=== PATIENT | female | born 1955 | race Caucasian/White ===

== ENCOUNTER 2019-01-19 17:10 | Emergency (ER) | payer MEDICARE, MEDICAID, SELFPAY ==
[2019-01-19 17:15] VITALS: BP 137/90; PULSE 72; RESP 16; TEMP 36.7; O2SAT 96
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
[2019-01-19 17:53] VITALS: BP 139/83; PULSE 73; RESP 18; O2SAT 99
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
--- NOTE | 2019-01-19 18:17 | DI.RAD.S_ITS ---
PROCEDURE: XR FINGER RT MIN 2V INDICATIONS: thumb pain TECHNIQUE: AP hand, 3 views of the first finger(s) acquired. COMPARISON: None. FINDINGS: Bones: There is no gross acute right thumb fracture or dislocation. Osteoarthritic changes throughout right thumb is seen. Finding is more prominent at first CMC joint. No suspicious bony lesions. Soft tissues: Well-corticated fragments are noted adjacent to first metacarpal base, likely representing remote injury. IMPRESSION: Osteoarthritic changes throughout right thumb. No acute fracture or dislocation. Dictated by: Rafy Rivera M.D. on 01/19/2019 at 19:17 Approved by: Rafy Rivera M.D. on 01/19/2019 at 19:21
[2019-01-19] MEDS: TET,DIPH,PERTUSS(ACELL),VAC/PF 0.5 ML SYRINGE IM (18:21)
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
[2019-01-19 18:30] VITALS: BP 137/90; PULSE 72; O2SAT 98
[2019-01-19] MEDS: MORPHINE 2 MG/ML INJ IV (18:42)
[2019-01-19 18:45] VITALS: BP 128/69; PULSE 71; RESP 18; O2SAT 96
--- NOTE | 2019-01-19 20:09 | DI.CT.S_ITS ---
PROCEDURE: CT PEL WO CON INDICATIONS: left hip pain fall TECHNIQUE: Noncontrast 3 mm axial sections acquired through the bony pelvis, with coronal and sagittal reformatting. COMPARISON: [facility], CR, XR HIP W PEL IF DONE LT 2V, 01/19/2019, 17:51. FINDINGS: Image quality: Beam hardening artifacts are noted from bilateral hip prosthesis and surgical hardware. Bones: Patient is status post prior bilateral total hip arthroplasty and internal fixation of left posterior acetabulum. Pelvic ring is intact. There is no definite acute pelvic or hip fracture. No evidence of hardware loosening or failure. No suspicious intraosseous lesion. Soft tissues: There is no pelvic free fluid or free air. Urinary bladder is well-distended and shows no gross bladder wall abnormality. No abnormal bowel wall thickening. Uterus and bilateral adnexa show no gross abnormality. No significant joint effusion is seen. No pelvic or hip muscle or soft tissue abnormality is noted. IMPRESSION: 1. Prior bilateral total hip arthroplasty and internal fixation of posterior left acetabulum. No gross hardware loosening or failure. 2. No gross acute pelvic or hip fracture. No hip dislocation. 3. No pelvic free fluid or free air. No gross muscle or soft tissue abnormality. Dictated by: Rafy Rivera M.D. on 01/19/2019 at 20:56 Approved by: Rafy Rivera M.D. on 01/19/2019 at 21:01
--- NOTE | 2019-01-19 20:10 | PC.NURSE ---
Attempted to ambulate pt. Pt states L hip feels unstable with ambulation. Pt returned to bed, Dr Tapia notified.
[2019-01-19 21:25] VITALS: BP 123/71; PULSE 82; RESP 18; O2SAT 95
[2019-01-19] MEDS: HYDROCODONE/ACET 5/325 PREPACK 1 BOTTLE MISC (21:31)
== END 2019-01-19 21:40 | disposition home or self-care (01) ==
PROVIDERS: Emergency Provider Emergency Medicine; Family Provider Internal Medicine; PCP Internal Medicine
DX: S42.022A Displaced fracture of shaft of left clavicle, initial encounter for closed fracture (principal); R07.89 Other chest pain; M25.512 Pain in left shoulder; S61.011A Laceration without foreign body of right thumb without damage to nail, initial encounter; V19.88XA Pedal cyclist (driver) (passenger) injured in other specified transport accidents, initial encounter
CPT/HCPCS: 71101; 72192; 73030; 73130; 73502; 90471; 96374; 99283; 99284; 90715; J2270

== ENCOUNTER → 2019-03-01 08:48 | Outpatient (CLI) | payer MEDICARE, MEDICAID, SELFPAY ==
[2019-03-01 10:10] LABS: Vitamin D 25 Hydroxy (D3) 34.9 ng/mL (30.0-100.0)
== END ==
PROVIDERS: Family Provider Internal Medicine; PCP Internal Medicine; Visit Provider Orthopaedic Surgery
DX: S42.002A Fracture of unspecified part of left clavicle, initial encounter for closed fracture (principal); Z96.643 Presence of artificial hip joint, bilateral
CPT/HCPCS: 36415; 82306

== ENCOUNTER → 2019-06-13 15:22 | Outpatient (CLI) | payer MEDICARE, SELFPAY ==
[2019-06-13 16:01] LABS: Add Manual Diff / Slide Review NO; Basophils Absolute Auto 0 /uL (0-100); Basophils Percent Auto 0.6 % (0-2); Eosinophils Absolute Auto 100 /uL (0-450); Eosinophils Percent Auto 1.9 % (2-4); Hematocrit 37.3 % (36-46); Hemoglobin 12.4 g/dL (12.0-16.0); Lymphocytes Absolute Auto 1800 /uL (1100-4500); Mean Corpuscular HGB Conc 33.3 % (30-36); Mean Corpuscular Hemoglobin 28.3 PG (26-34); Mean Corpuscular Volume 84.9 fL (80-100); Monocytes Absolute Auto 400 /uL (0-900); Monocytes Percent Auto 7.3 % (3-14); Neutrophils Absolute Auto 3300 /uL (1500-7000); Neutrophils Percent Auto 58.2 % (50-75); Platelet Count 324 X10^3/uL (150-400); Red Cell Distribution Width 16.7 % (11.6-14.8); White Blood Cell Count 5.6 X10^3/uL (4.5-11.0)
[2019-06-13 16:40] LABS: Free T4, Direct Thyroxine 1.12 ng/dL (0.78-2.19)
[2019-06-13 16:43] LABS: Alanine Aminotransferase 23 IU/L (9-52); Albumin 4.5 g/dL (3.5-5.0); Albumin Globulin Ratio 1.6 (1.0-2.8); Alkaline Phosphatase 78 U/L (38-126); Aspartate Aminotransferase 24 IU/L (14-36); Bilirubin Total 0.3 mg/dL (0.2-1.3); Blood Urea Nitrogen 12 mg/dL (7-17); Calcium 10.9 mg/dL (8.4-10.2); Carbon Dioxide 29 mmol/L (22-32); Chloride 101 mmol/L (98-107); Estimated Glomerular Filt Rate > 60.0 mL/min (>60); Globulin 2.8 g/dL (1.7-4.1); Glucose 101 mg/dL (80-110); HEMOLYSIS < 15 (0-50); Potassium 4.1 mmol/L (3.4-5.1); Sodium 139 mmol/L (137-145); Total Protein 7.3 g/dL (6.3-8.2)
== END ==
PROVIDERS: PCP Internal Medicine; Visit Provider Internal Medicine
DX: S09.90XA Unspecified injury of head, initial encounter (principal); R53.83 Other fatigue; V89.2XXA Person injured in unspecified motor-vehicle accident, traffic, initial encounter
CPT/HCPCS: 36415; 80053; 84439; 84443; 85025

== ENCOUNTER → 2019-06-14 14:23 | Outpatient (CLI) | payer MEDICARE, SELFPAY ==
--- NOTE | 2019-06-14 14:25 | DI.CT.S_ITS ---
PROCEDURE: CT HEAD/BRAIN WO CON INDICATIONS: closed head injury TECHNIQUE: Noncontrast 4.5 mm thick angled axial sections acquired from the foramen magnum to the vertex, with coronal and sagittal reformats. For radiation dose reduction, the following was used: automated exposure control, adjustment of mA and/or kV according to patient size. COMPARISON: None. FINDINGS: Image quality: Excellent. CSF spaces: Basal cisterns are patent. No extra-axial fluid collections. There is ex vacuo dilatation seen of the anterior aspect of the left lateral ventricle. Brain: There is a remote infarction seen midline loss involving the left frontal lobe deep white matter and the left basal ganglia. No intracranial bleeds or masses. There is cerebral volume loss for age, with resultant ventricular and sulcal prominence. There are periventricular and deep white matter chronic small vessel ischemic changes. There is intracranial internal carotid artery atherosclerosis. Skull and face: Calvarium and visualized facial bones appear intact, without suspicious lesions. Sinuses: Visualized sinuses and mastoids are clear. 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 No acute intracranial hemorrhage is seen. Dictated by: Niraj Kumar M.D. on 06/14/2019 at 14:01 Approved by: Niraj Kumar M.D. on 06/14/2019 at 14:02
== END ==
PROVIDERS: PCP Internal Medicine; Visit Provider Internal Medicine
DX: I69.314 Frontal lobe and executive function deficit following cerebral infarction (principal)
CPT/HCPCS: 70450

== ENCOUNTER → 2019-07-11 14:55 | Outpatient (CLI) | payer MEDICARE, SELFPAY ==
[2019-07-13 16:03] LABS: Parathyroid Hormone Int 7 pg/mL (14-64)
== END ==
PROVIDERS: PCP Internal Medicine; Visit Provider Internal Medicine
DX: E83.52 Hypercalcemia (principal)
CPT/HCPCS: 36415; 83970

== ENCOUNTER 2019-08-31 08:23 | Day surgery (SDC) | payer MEDICARE, SELFPAY ==
[2019-08-28 13:44] VITALS: BMI 28.1
[2019-08-31 08:45] VITALS: BP 139/85; PULSE 69; RESP 16; TEMP 36.6; O2SAT 98; BMI 28.1
[2019-08-31] MEDS: LACTATED RINGERS 1,000 ML 42 ML IV (09:04)
--- NOTE | 2019-08-31 10:10 | PM.PREOP ---
Pre-operative Note Interval Note History & Physical reviewed/Exam performed by Physician: Yes Changes to H&P: No
[2019-08-31] MEDS: CEFAZOLIN 2 GM/100 ML FROZ.PIGGY IV (10:49)
[2019-08-31] MEDS: BUPIVACAINE 0.5% W/ EPI (PF) VIAL 30 ML INJ (11:33)
[2019-08-31 12:06] VITALS: BP 97/66; PULSE 79; RESP 18; TEMP 36.2; O2SAT 93
--- NOTE | 2019-08-31 12:09 | P.OP_ITS ---
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 No sign of any Stener lesion Closure Type: primary Specimen(s): none sent Applied: implant(s) ( 3 Arthrex swivel locks as well as fiber tape) Estimated Blood Loss (mL): 0 Blood products transfused: none Tourniquet time (min): 48 Procedure in detail: on date of service, patient was met in the holding area where her operative site was signed and witnessed by the OR staff. Surgeries once again discussed with the patient and any remaining questions or concerns that she had were answered fully. Patient received her antibiotics preoperatively. Operative site was signed and witnessed by the OR staff. Patient was taken back to the operating theater placed on the operating table in a supine position. Great care was taken to ensure that all bony prominences were appropriately padded. Well-padded tourniquet was placed up along the right upper extremity. Time-out was repeated verifying patient's name procedure and operative site. Right arm was prepped and draped in the normal sterile fashion. Esmarch was used to exsanguinate the limb the tourniquet was turned up to 250 mm of mercury. Fifteen blade was used to make an incision along the ulnar border of the thumb centered over the MCP joint. Fifteen blade was used to incise through skin only. Pickups and tenotomy scissors used to bluntly dissect through the soft tissue protecting any branches off the superficial radial nerve. This was continued until we had good visualization of the abductor aponeurosis. No sign of any Stener lesion. This was then split and retracted giving us good visualization of the ulnar collateral ligament. Complete rupture off the metacarpal. The joint was inspected. No sign of any loose bodies no sign of any significant arthritic changes. Two drill holes were made in the metacarpal guidewires were placed 1st and positioning was verified with mini C-arm. Once we were satisfied with the position of the guidewire so they were drilled. Two anchors were placed loaded with FiberTape as well as 2 0 FiberWire. FiberWire was used to pass through the ulnar collateral ligament allowing us to tie it down on to the metacarpal. This provided a osuna repair of the ulnar collateral ligament. This was done with the joint reduced correcting the angular deformity. Next, 3rd anchor was placed in the proximal phalanx. Same procedure was used guidewire was placed followed by drilling. Two strands of the fiber tape from the 2 previous proximal anchors were placed into the single distal anchor and were tenodesis across the joint in order to secure the repair of the ulnar collateral ligament as well as augment the repair. The joint was stressed and there was no longer any booking open of the ulnar aspect of the joint. Patient was demonstrating a good repair of her ulnar collateral ligament. Wound was then copiously irrigated and then closed in a layered fashion. Patient was placed into a thumb spica splint and was taken to the PACU in stable condition. Complications: none Post-operative Condition: stable Disposition: PACU Plan for aftercare: patient will be in the splint until she sees the hand therapist. Hand therapist will make her a removable brace. Once patient is in the removable brace there is no restrictions to range of motion of the MCP joint of the thumb. Will limit lifting to 2-3 lb. No stress across the ulnar collateral ligament
[2019-08-31 12:11] VITALS: BP 113/69; PULSE 76; RESP 16; O2SAT 94
[2019-08-31 12:20] VITALS: BP 121/75; PULSE 73; RESP 18; O2SAT 93
[2019-08-31 12:30] VITALS: BP 118/76; PULSE 74; RESP 18; TEMP 36.2; O2SAT 94
== END 2019-08-31 13:00 | disposition home or self-care (01) ==
PROVIDERS: PCP Internal Medicine; Visit Provider Orthopaedic Surgery
PROC: (CPT 26540; principal; 2019-08-31 10:45)
DX: S63.641A Sprain of metacarpophalangeal joint of right thumb, initial encounter (principal); V19.3XXA Pedal cyclist (driver) (passenger) injured in unspecified nontraffic accident, initial encounter; I25.10 Atherosclerotic heart disease of native coronary artery without angina pectoris; Z86.73 Personal history of transient ischemic attack (TIA), and cerebral infarction without residual deficits; M19.90 Unspecified osteoarthritis, unspecified site
CPT/HCPCS: 26541; J0690; J2250; J3010

== ENCOUNTER → 2019-09-19 12:51 | Outpatient (CLI) | payer MEDICARE, SELFPAY ==
[2019-09-19 13:35] LABS: BUN Creatinine Ratio 17.5 (6-22); Blood Urea Nitrogen 14 mg/dL (7-17); Carbon Dioxide 27 mmol/L (22-32); Chloride 105 mmol/L (98-107); Estimated Glomerular Filt Rate > 60.0 mL/min (>60); Glucose 89 mg/dL (80-110); HEMOLYSIS < 15 (0-50); Potassium 4.5 mmol/L (3.4-5.1); Sodium 139 mmol/L (137-145)
== END ==
PROVIDERS: PCP Internal Medicine; Visit Provider Internal Medicine
DX: E83.52 Hypercalcemia (principal)
CPT/HCPCS: 36415; 80048

== ENCOUNTER → 2019-09-21 11:07 | Outpatient (CLI) | payer MEDICARE, SELFPAY ==
[2019-09-21 12:40] LABS: Alanine Aminotransferase 16 IU/L (<35); Albumin 4.5 g/dL (3.5-5.0); Albumin Globulin Ratio 1.6 (1.0-2.8); Alkaline Phosphatase 66 U/L (38-126); Aspartate Aminotransferase 23 IU/L (14-36); BUN Creatinine Ratio 22.9 (6-22); Bilirubin Total 0.4 mg/dL (0.2-1.3); Blood Urea Nitrogen 16 mg/dL (7-17); Calcium 9.7 mg/dL (8.4-10.2); Carbon Dioxide 25 mmol/L (22-32); Chloride 105 mmol/L (98-107); Estimated Glomerular Filt Rate > 60.0 mL/min (>60); Globulin 2.8 g/dL (1.7-4.1); Glucose 111 mg/dL (80-110); HEMOLYSIS < 15 (0-50); Potassium 4.4 mmol/L (3.4-5.1); Sodium 139 mmol/L (137-145); Total Protein 7.3 g/dL (6.3-8.2)
== END ==
PROVIDERS: PCP Internal Medicine; Visit Provider Orthopaedic Surgery
DX: S32.592G Other specified fracture of left pubis, subsequent encounter for fracture with delayed healing (principal)
CPT/HCPCS: 36415; 80053

== ENCOUNTER 2019-11-14 12:51 | Day surgery (SDC) | payer MEDICARE, SELFPAY ==
[2019-11-07 07:52] VITALS: BMI 28.1
[2019-11-14] VITALS (11 sets, daily range): BP systolic 103–131; BP diastolic 60–81; PULSE 68–83; RESP 12–19; TEMP 36.2; O2SAT 8–99; BMI 28.1
--- NOTE | 2019-11-14 | DI.RAD.S_ITS ---
PROCEDURE: XR CLAVICLE LT INDICATIONS: POST OPERATIVE LEFT CLAVICLE TECHNIQUE: 2 views of the clavicle were acquired. COMPARISON: [facility], CR, XR CLAVICLE LT, 11/14/2019, 18:03. FINDINGS: Bones: Status post ORIF of left clavicular fracture. No hardware complication. Degenerative changes in the left acromioclavicular joint. Soft tissues: No suspicious soft tissue calcifications. IMPRESSION: Status post ORIF of left clavicular fracture. No acute hardware complications visualized. Dictated by: Sam Bedolla M.D. on 11/14/2019 at 19:26 Approved by: Sam Bedolla M.D. on 11/14/2019 at 19:28
--- NOTE | 2019-11-14 | DI.RAD.S_ITS ---
PROCEDURE: XR CLAVICLE LT INDICATIONS: CLAVICULAR PLATE TECHNIQUE: 2 views of the clavicle were acquired. COMPARISON: [facility], CR, XR CLAVICLE LEFT, 01/26/2019, 14:24. [facility] [place], CR, XR CLAVICLE LEFT, 08/16/2019, 8:51. [facility] [place], CR, XR CLAVICLE LEFT, 09/27/2019, 9:24. [facility], CR, XR CLAVICLE LT, 11/14/2019, 18:58. FINDINGS: Bones: No previously unidentified fractures or dislocations. No suspicious bony lesions. Fusion plate crosses the area of prior nonunion fracture. Soft tissues: No suspicious soft tissue calcifications. IMPRESSION: Fusion plate sets normal anatomic alignment across the distal clavicular nonunion fracture previously present. Dictated by: Mark Dewitt M.D. on 11/15/2019 at 9:52 Approved by: Mark Dewitt M.D. on 11/15/2019 at 9:53
[2019-11-14] MEDS: LACTATED RINGERS 1,000 ML 42 ML IV ×2 (13:28→18:36)
--- NOTE | 2019-11-14 13:48 | SUR.PREOP ---
Pillow placed under left upper extremity for comfort.
--- NOTE | 2019-11-14 15:42 | SUR.PREOP ---
Block start time [1527] . Monitoring initiated and maintained throughout procedure. Oxygen and medications given per anesthesiologist instructions. Patient remained stable throughout procedure, no adverse reactions noted. Block end time [1537].
--- NOTE | 2019-11-14 15:42 | PM.PREOP ---
Pre-operative Note Interval Note History & Physical reviewed/Exam performed by Physician: Yes Changes to H&P: No
--- NOTE | 2019-11-14 15:43 | P.OP_ITS ---
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 She has failed extensive conservative measures and bone stimulator. She is brought the operating room for open reduction internal fixation of her left clavicle with a plan for bone grafting because of a atrophic nonunion. 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 Estimated Blood Loss (mL): 150 Blood products transfused: none Procedure in detail: Patient is brought the operating room and underwent induction of a general anesthesia. She was positioned in a beach chair position with a shoulder table. X-ray was used to check and make sure that we had adequate visualization of the clavicle. Time-out was performed antibiotics were given and the site was reconfirmed. She was prepped and draped in standard sterile fashion. Anterior incision was made dissection was carried out through skin and subcutaneous tissues down along the clavicle. Soft tissue was gently stripped from portion of the clavicle. The nonunion site was identified. It was meticulously debrided removing pseudoarthrosis tissue. Both ends of the clavicle were carefully cleaned with a combination of a curette and a pituitary and meticulously freshened in order to allow adequate bony healing. There was obvious resorption of the clavicle. An iliac crest allograft had been obtained and this was carefully taken and then sculpted in order to fit in the defect of the clavicle. The nonunion was then meticulously reduced and I used a combination of a clamp and a K-wire for temporary provisional fixation. The graft was placed in the nonunion site and the locking Mo and Nephew clavicular plate was fixed to the distal aspect of the clavicle specifically positioning it in order to avoid AC joint disruption. Compression was then applied across the plate and with the bone graft in place and it was fixed to the more medial aspect of the clavicle. Adequate fixation was achieved with a combination of locking and nonlocking screws primarily using locking screws in the distal clavicle. Stable fixation was achieved. All screws were meticulously drilled and carefully measured. X-ray was used with the C-arm to confirm position of the plate screws and the alignment of the nonunion. One screw was changed out for a slightly shorter screw gentle range of motion showed that the fracture and fixation was stable. The wound was closed with interrupted Vicryl and a running subcuticular randell stitch. Tension was specifically removed from the skin edge in order to minimize scarring. The wound was dressed sterilely and the patient was placed in a sling. Marcaine was injected. She tolerated the procedure well. Complications: none Post-operative Condition: stable Disposition: same day surgery Plan for aftercare: Patient can be discharged to home if she is safe and has adequate pain control in a sling. If she is having difficulty with plan to admit her for observation. Full-time sling use for 6 weeks postoperatively okay to loosen sling and do wrist and elbow range of motion but no active range of motion of her shoulder. Okay to have sling off when she is seated in a shower.
[2019-11-14] MEDS: CEFAZOLIN 2 GM/100 ML FROZ.PIGGY IV (15:45)
--- NOTE | 2019-11-14 16:20 | SUR.OPER ---
Beach chair with [employer] Maquet shoulder positioner. Lower body on padded OR bed. Head in foam padded head cradle, secured with straps. Non-operative arm secured <90 degrees abduction. Pillow under knees x 2. Safety belt at thigh. Cloth tape over blanket over lower legs.
--- NOTE | 2019-11-14 16:29 | PM.PROC.1 ---
Procedures Date/Time Date of procedure: 11/14/19 Time of procedure: 15:30 General Procedure description: Ultrasound guided interscalene brachial plexus nerve block for post op pain control after Left clavicle ORIF surgery by Dr. Mo. Risk and benefits of procedure discussed with patient. ASA monitoring applied to patient. O2 given via nasal cannula. 2 mg Versed and 100 mcg fentanyl given for procedural sedation. Skin site was prepped with chlorhexidine and allowed to fully dry. Sterile gloves, mask, hat and probe cover were used to maintain sterility. 2% lidocaine and 30ga needle was used to make a small skin wheal at needle insertion site. Under ultrasound guidance, a 21ga 50mm Pajunk needle was directed into the interscalene groove (middle/anterior scalenes) near the brachial plexus. Patient reported no parasthesias. After negative aspiration, 20 mL 0.5% ropivicaine and 10mg dexamethasone were injected around brachial plexus. Patient tolerated procedure well.
[2019-11-14] MEDS: BUPIVACAINE 0.25% W/ EPI 30 ML VIAL INJ (16:30)
[2019-11-14] MEDS: ONDANSETRON 4 MG/2 ML INJ IV (19:22)
[2019-11-14] MEDS: OXYCODONE/ACETAMINOPHEN 5/325 TABLET 1 TAB PO (19:23)
--- NOTE | 2019-11-14 19:49 | SUR.PHASEII ---
Went over all discharge instructions with sonDavid. Prescription given to son. Patient home in stable condition.
== END 2019-11-14 19:51 | disposition home or self-care (01) ==
PROVIDERS: PCP Internal Medicine; Visit Provider Orthopaedic Surgery
PROC: 0PSB04Z Reposition Left Clavicle with Internal Fixation Device, Open Approach (ICD-10-PCS; CPT 23515; principal; 2019-11-14 15:15)
DX: S42.032K Displaced fracture of lateral end of left clavicle, subsequent encounter for fracture with nonunion (principal); V19.3XXS Pedal cyclist (driver) (passenger) injured in unspecified nontraffic accident, sequela
CPT/HCPCS: 23515; 20900; 64415; 73000; 76000; J0690; J1100; J2250; J2405; J2704; J3010

== ENCOUNTER → 2024-07-25 10:30 | Outpatient (CLI) | payer OTHER, SELFPAY ==
--- NOTE | 2024-07-25 10:35 | DI.CT.S_ITS ---
PROCEDURE: CT LE LT W CON INDICATIONS: Presence of artificial hip joint,bi,hx left KARSTEN, TECHNIQUE: Noncontrast 3 mm axial sections acquired through the bony pelvis. Additional 3 mm axial sections acquired through the symptomatic hip joint, with coronal and sagittal reformats. COMPARISON: [facility] [place], CR, XR PELVIS WITH LATERAL HIP LEFT, 03/24/2019, 16:14. [facility] [place], CR, XR PELVIS WITH LATERAL HIP LEFT, 07/12/2024, 16:10. FINDINGS: Image quality: Excellent, although streak artifact from the bilateral hip arthroplasties limits evaluation. Bones: Diffuse osseous demineralization. No acute fracture or dislocation. Chronic, healed fracture of the left inferior pubic ramus (). Joints: Status post bilateral total hip arthroplasty and plate/screw fixation of the left ischium hardware complication. Mild bilateral sacroiliac joint and moderate pubic symphysis osteoarthritis. Moderate-severe lower lumbar facet arthropathy and at least moderate central canal stenosis at the L4-L5 level (5/8). Muscles: Mild asymmetric fatty atrophy of the left gluteus medius musculature. Otherwise, mild diffuse muscle atrophy. Tendons: Hamstring tendon contours are preserved. Vessels: Mild aortoiliac atherosclerosis. No aneurysmal dilatation of the visualized arterial vasculature. Lymph nodes: No bilateral inguinal or lower retroperitoneal lymphadenopathy. Other soft tissues: Scattered colonic diverticulosis. IMPRESSION: 1. Status post bilateral total hip arthroplasty without hardware complication, specifically of the left hip arthroplasty. 2. 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 3. Multilevel facet arthropathy of the lumbar spine. Dictated by: Corona Ron M.D. on 07/25/2024 at 13:46 Approved by: Corona Ron M.D. on 07/25/2024 at 14:00
== END ==
PROVIDERS: PCP Internal Medicine; Referring Provider Orthopaedic Surgery; Visit Provider Orthopaedic Surgery
DX: Z09 Encounter for follow-up examination after completed treatment for conditions other than malignant neoplasm (principal); Z96.643 Presence of artificial hip joint, bilateral; M47.816 Spondylosis without myelopathy or radiculopathy, lumbar region; M47.818 Spondylosis without myelopathy or radiculopathy, sacral and sacrococcygeal region; M48.061 Spinal stenosis, lumbar region without neurogenic claudication; I70.0 Atherosclerosis of aorta; K57.90 Diverticulosis of intestine, part unspecified, without perforation or abscess without bleeding
CPT/HCPCS: 73700